=== PATIENT | male | born 1930 | race Caucasian/White ===

== ENCOUNTER → 2018-07-26 | Outpatient (CLI) | payer MEDICARE ==
[~2018-07-26] MED LIST: COLESTID 1GM1 G PO; FERATE27 MG PO; LEVOXYL0.025 MG PO; LORTAB 5/500 501 TAB PO; LOTRONEX1 MG PO; NORVASC 5MG5 MG/TAB PO; PROTONIX 40MG T40 MG PO; PROTONIX20 MG PO; SYNTHROID0.075 MG/T PO
[2018-07-26 11:40] LABS: HEMOGLOBIN 11.7 g/dl (13.5-18.0); MEAN CELL VOLUME 94 fl (80.0-100.0); MEAN CORPUSCULAR HEMOGLOBIN 30 pg (27.0-31.0); MEAN CORPUSCULAR HGB CONC 32 g/dl (33.0-37.0); MEAN PLATELET VOLUME 10.8 fl (7.4-10.4); PLATELET COUNT 255 K/mm3 (130-400); REDCELL DISTRIBUTION WIDTH-CV 14.3 % (11.5-14.5)
[2018-07-26 11:41] LABS: HEMATOCRIT 36.6 % (42.0-52.0)
[2018-07-26 11:42] LABS: ALBUMIN 3.9 gm/dL (3.5-5.0); BILIRUBIN,TOTAL 0.5 mg/dL (0.0-1.0); CALCIUM 9.3 mg/dL (8.4-10.2); CREATININE, serum 0.52 mg/dL (0.66-1.25); POTASSIUM 3.9 mmol/L (3.4-5.0); TOTAL PROTEIN 6.7 gm/dL (6.4-8.2)
== END ==
LOC: ZCOL.LAB 11:24
PROVIDERS: Internal Medicine Interventional Cardiology
DX: Z45.010 Encounter for checking and testing of cardiac pacemaker pulse generator [battery] (principal); I49.5 Sick sinus syndrome